=== PATIENT | male | born 1975 | race African-American/Black ===

== ENCOUNTER 2018-11-16 08:14 | Emergency (ER) | payer OTHER ==
[~2018-11-16] VITALS: Ht 170.2 cm; Wt 70.8 kg
[~2018-11-16 08:14] MED LIST: COGENTIN1 MG ORAL; IBUPROFEN600 MG ORAL; NAPROSYN500 M1 ORAL; ZYPREXA10 MG ORAL
[2018-11-16 08:27] VITALS: BP 140/94
--- NOTE | 2018-11-16 08:28 | NUR ---
ED Nurse Note: pt walked in to ED due to rashes on both forearm and hands for 2 days. per pt, noticed it after cutting trees. c/o itchness. pt also c/o on and off burning epigastric pain for last 2 months. AAO x4. respirations even and non-labored noted. will wait for the further order.
[2018-11-16] MEDS ORDERED: ANTI-ITCH56 GM TP (08:59)
[2018-11-16] MEDS ORDERED: CEPHALEXIN500 MG ORAL (08:59)
[2018-11-16 09:09] VITALS: BP 140/94
--- NOTE | 2018-11-16 09:10 | NUR ---
ER DISCHARGE NOTE: Patient is cleared to be discharged per ERMD, pt is aox4, on room air, with stable vital signs. pt was given dc and prescription instructions, pt was able to verbalize understanding, pt id band removed. pt is able to ambulate with steady gait. pt took all belongings.
--- NOTE | 2018-11-16 09:43 | Emergency Room Report ---
History of Present Illness General Chief Complaint: Skin Rash/Abscess Source: Patient Present Illness HPI 43-year-old male presents ED for evaluation. Patient states there is a rash on his arms. Started after he cut down a tree a few days ago and some substance fell from the tree onto his arms. States that it is very itchy and burning 5 out of 10 pain. Nonradiating. No other aggravating or relieving factors. Denies any known food or drug allergies. Denies any tongue swelling or throat swelling. Denies fevers or chills. No other aggravating or relieving factors. Denies any other associated symptoms Allergies: Coded Allergies: No Known Allergies (Unverified , 11/09/13) Patient History Past Medical History: none Past Surgical History: none Pertinent Family History: none Social History: Denies: smoking, alcohol use, drug use Immunizations: UTD Reviewed Nursing Documentation: PMH: Agreed; PSxH: Agreed Nursing Documentation-PMH Past Medical History: No History, Except For Hx Cardiac Problems: No Review of Systems All Other Systems: negative except mentioned in HPI Physical Exam Vital Signs Date Time Temp Pulse Resp B/P (MAP) Pulse Ox O2 Delivery O2 Flow Rate FiO2 11/16/18 08:19 97.5 71 20 140/94 (109) 96 Room Air Sp02 EP Interpretation: reviewed, normal General Appearance: no apparent distress, alert, GCS 15, non-toxic Head: normocephalic Eyes: bilateral eye normal inspection, bilateral eye PERRL ENT: normal ENT inspection Neck: normal inspection Respiratory: normal inspection Cardiovascular #1: normal inspection Gastrointestinal: normal inspection Rectal: deferred Genitourinary: no CVA tenderness Musculoskeletal: normal inspection Neurologic: alert, oriented x3, responsive, motor strength/tone normal, sensory intact, speech normal Psychiatric: judgement/insight normal, memory normal, mood/affect normal, no suicidal/homicidal ideation Skin: rash - papular erythematous rash in clusters on both arms. nonerythematous base Lymphatic: normal inspection Medical Decision Making Diagnostic Impression: Primary Impression: Rash ER Course Hospital Course 43-year-old male presents to ED with rash to arms Differential diagnoses include: Cellulitis, dermatitis, insect bite, abscess Clinical course Patient placed on stretcher. After initial history, physical exam reveals a male in no acute distress. On exam there is a fine papular rash in clusters on both arms. None erythematous base. Discussed findings with patient. Given organic substance made contact likely a contact dermatitis. Will discharge with hydrocortisone cream and antibiotics. Recommend close follow-up with dermatology. States he will follow-up with his PMD to get a referral Diagnosis -rash stable and discharged to home with prescription for keflex, hydrocortisone. Instructed to followup with PMD. Instructed return to ED if symptoms recur or worsen Last Vital Signs Date Time Temp Pulse Resp B/P (MAP) Pulse Ox O2 Delivery O2 Flow Rate FiO2 11/16/18 09:09 97.5 71 20 140/94 96 Room Air Status: improved Disposition: HOME, SELF-CARE Condition: Stable Scripts Hydrocortisone 2% Cream (ANTI-ITCH 2% CREAM) Y Cr 56 GM TP BID for 7 Days, #56 GM Prov: Vadim Tomlinson MD 11/16/18 Cephalexin* (KEFLEX*) 500 Mg Capsule 500 MG ORAL EVERY 6 HOURS for 7 Days, CAP Prov: Vadim Tomlinson MD 11/16/18 Patient Instructions: Contact Dermatitis, [id number] Vadim Tomlinson MD Nov 16, 2018 09:43
== END 2018-11-16 09:11 | disposition home or self-care (01) ==
LOC: EMR 08:26
DX: R21 Rash and other nonspecific skin eruption (principal)
CPT/HCPCS: 99282

== ENCOUNTER 2019-03-23 18:44 | Emergency (ER) | payer OTHER ==
[~2019-03-23] VITALS: Ht 167.6 cm; Wt 74.8 kg
[~2019-03-23 18:44] MED LIST changes: +ANTI-ITCH56 GM TP; +CEPHALEXIN500 MG ORAL
--- NOTE | 2019-03-23 19:11 | NUR ---
ED Nurse Note: PT FROM HOME WALKED IN DUE TO SORE THROAT AND DRY COUGHING X 3 DAYS. DENIES FEVER OR CHILLS. AAO X4 AND AMBULATORY AND SPEAKS IN FULL SENTENCES.
[2019-03-23] MEDS ORDERED: AMOXICILLIN500 MG ORAL (19:58)
--- NOTE | 2019-03-23 19:58 | Emergency Room Report ---
History of Present Illness General Chief Complaint: Sore Throat Present Illness HPI 44-year-old male with history of schizophrenia reporting that he currently is compliant with his medication, here complaining of 2 days of a 10 out of 10 sore throat. Denies fever chills, cough and congestion. Has not taken medication for symptom relief. Also complains of several weeks of discoloration noted on his tongue however denies any pain or pruritus to the affected area. Has not taken medication for symptom relief. Denies abdominal pain, nausea vomiting, chest pain, shortness of breath, palpitation, no other associated symptoms. Is up-to-date with his immunization. Allergies: Coded Allergies: No Known Allergies (Unverified , 11/09/13) Patient History Past Medical History: see triage record Past Surgical History: unable to obtain Pertinent Family History: none Immunizations: UTD Reviewed Nursing Documentation: PMH: Agreed; PSxH: Agreed Nursing Documentation-PMH Hx Cardiac Problems: No History Of Psychiatric Problem: Yes - Schizophrenia Review of Systems All Other Systems: negative except mentioned in HPI Physical Exam Vital Signs Date Time Temp Pulse Resp B/P (MAP) Pulse Ox O2 Delivery O2 Flow Rate FiO2 03/23/19 19:04 98.6 98 18 124/84 (97) 95 Room Air Sp02 EP Interpretation: reviewed, normal General Appearance: no apparent distress, alert, GCS 15, non-toxic Head: normocephalic, atraumatic Eyes: bilateral eye normal inspection, bilateral eye PERRL ENT: hearing grossly normal, no angioedema, normal voice, TMs + canals normal, tonsillar swelling, tonsillar exudate, other - Yellow discoloration noted on anterior side of tongue Neck: full range of motion, supple, no carotid bruits, supple/symm/no masses Respiratory: chest non-tender, lungs clear, normal breath sounds, no rhonchi, no wheezing, speaking full sentences Cardiovascular #1: regular rate, rhythm, no edema, no murmur, normal capillary refill Gastrointestinal: normal bowel sounds, non tender, soft, non-distended, no guarding, no rebound Rectal: deferred Genitourinary: no CVA tenderness Musculoskeletal: back normal, gait/station normal, normal range of motion, non- tender Neurologic: alert, oriented x3, responsive, motor strength/tone normal, sensory intact, speech normal Psychiatric: judgement/insight normal, memory normal, mood/affect normal, no suicidal/homicidal ideation Skin: no rash Lymphatic: no adenopathy Medical Decision Making PA Attestation Diagnosis and treatment plans were reviewed and discussed with my supervising physician Dr. Kelley Diagnostic Impression: Primary Impression: Strep pharyngitis Additional Impression: Tongue lesion ER Course 44-year-old male with history of schizophrenia reporting that he currently is compliant with his medication, here complaining of 2 days of a 10 out of 10 sore throat. Denies fever chills, cough and congestion. Has not taken medication for symptom relief. Also complains of several weeks of discoloration noted on his tongue however denies any pain or pruritus to the affected area. Has not taken medication for symptom relief. Denies abdominal pain, nausea vomiting, chest pain, shortness of breath, palpitation, no other associated symptoms. Is up-to-date with his immunization. Ddx considered but are not limited to: strep pharyngitis, URI, tonsillitis, peritonsillar abscess, influneza Vital signs: are WNL, pt. is afebrile H&PE are most consistent with: Strep pharyngitis, tongue lesion ORDERS: Amoxicillin, ED INTERVENTIONS: Amoxicillin DISCHARGE: At this time pt. is stable for d/c to home. Will provide printed patient care instructions, and any necessary prescriptions. Care plan and follow up instructions have been discussed with the patient prior to discharge. Follow-up with primary care provider to refer to ENT for biopsy of tongue lesion. return to ER if worsening symptoms Last Vital Signs Date Time Temp Pulse Resp B/P (MAP) Pulse Ox O2 Delivery O2 Flow Rate FiO2 03/23/19 19:04 98.6 98 18 124/84 (97) 95 Room Air Disposition: HOME, SELF-CARE Condition: Stable Scripts Amoxicillin* (AMOXIL*) 500 Mg Capsule 500 MG ORAL EVERY 12 HOURS for 10 Days, #20 CAP Prov: Tara Dillon 03/23/19 Patient Instructions: Strep Throat Additional Instructions: Take medication as directed, follow-up with your primary care provider for referral to ear nose throat doctor for sampling of the lesion noted on your tongue. If worsening symptoms return to the emergency room. Tara Dillon Mar 23, 2019 19:58
--- NOTE | 2019-03-23 20:15 | NUR ---
Discharged home with ACI, arm band removed, mesdicated as ordered. Ambulating with steady gait. Has minimal pain.
[2019-03-23 20:18] VITALS: BP 124/84
== END 2019-03-23 21:08 | disposition home or self-care (01) ==
LOC: EMR 21:08
DX: J02.0 Streptococcal pharyngitis (principal); K14.9 Disease of tongue, unspecified; F20.9 Schizophrenia, unspecified
CPT/HCPCS: 99282

== ENCOUNTER 2019-08-15 09:58 | Emergency (ER) | payer OTHER ==
[~2019-08-15] VITALS: Ht 167.6 cm; Wt 74.8 kg
[2019-08-15 09:47] VITALS: BP 149/103
[~2019-08-15 09:58] MED LIST changes: +AMOXICILLIN500 MG ORAL
--- NOTE | 2019-08-15 09:58 | NUR ---
ED Nurse Note: pt. walked in to er from home. per pt. he has sorethroat x 1 week now with rash on his face that he noted x 3 days ago
[2019-08-15] MEDS ORDERED: AMOXICILLIN500 MG ORAL (10:03)
[2019-08-15 10:06] VITALS: BP 138/75
--- NOTE | 2019-08-15 10:10 | Emergency Room Report ---
History of Present Illness General Chief Complaint: Sore Throat Source: Patient Present Illness HPI Disclaimer: Please note that this report is being documented using [employer] technology. This can lead to erroneous entry secondary to incorrect interpretation by the dictating instrument. HPI: 44-year-old male presents for evaluation of sore throat and facial rash. Patient states over the past week he has had worsening sore throat, painful swallowing but denies any stridor, throat closing sensation, inability to swallow or tolerate his secretions. He reports mild nasal congestion but denies cough, fever, chills, vomiting, diarrhea. Yesterday he noted redness spreading around the bridge of his nose and onto his cheeks. Denies pain, itching, skin breakdown, discharge. States he has been treated for strep throat in the past. Denies sick contacts or recent travel. Has been isolating at home in accordance with local and national guidelines regarding COVID-19 infection. PMH: Schizophrenia PSH: Reviewed Allergies: Denies Social Hx: Current smoker though cutting back and planning to quit Allergies: Coded Allergies: No Known Allergies (Unverified , 11/09/13) COVID-19 Screening Contact w/high risk pt: No Recent Travel to affected area: No Experienced COVID-19 symptoms?: No Nursing Documentation-PMH Hx Cardiac Problems: No Review of Systems All Other Systems: negative except mentioned in HPI Physical Exam Vital Signs Date Time Temp Pulse Resp B/P (MAP) Pulse Ox O2 Delivery O2 Flow Rate FiO2 08/15/19 09:47 98.8 94 18 149/103 (118) 99 Room Air General: Awake and alert, no acute distress HEENT: NC/AT. EOMI. PERRLA. Anicteric sclera. Uvula is midline. There is mild pharyngeal and tonsillar erythema but no edema, no exudate. Airways patent , no stridor, tolerating secretions well. Neck: Supple, trachea midline, no submandibular or cervical lymphadenopathy Chest Wall: No tenderness, no deformity Cardiovascular: RRR. S1 and S2 normal. No murmur appreciated Resp: Normal work of breathing. No cough, wheezing or crackles appreciated Skin: Intact. No abrasions, laceration over the exposed skin. There is mild erythema around the nasal bridge extending over the cheeks bilaterally without edema, ulceration, vesicles, breakdown. Nikolsky negative. MSK: Normal tone and bulk. Moving all extremities. No obvious deformity. Neuro: Awake and alert. Mentating appropriately. Medical Decision Making Diagnostic Impression: Primary Impression: Erysipelas Additional Impressions: Suspected 2019 novel coronavirus infection Upper respiratory infection ER Course This a 44-year-old male presenting for evaluation of 1 week sore throat now with 1 day of skin rash over the face. Differential includes was not limited to viral syndrome, URI, pharyngitis, tonsillitis, influenza, COVID-19, cellulitis, erysipelas, abscess, lupus, drug reaction. Patient's presentation is most consistent with a viral syndrome regarding a sore throat though he has a history of streptococcal pharyngitis. Centor score is 0. Given the patient's upper respiratory symptoms and physical exam findings, the patient has been screened and is suspected to have COVID-19 however we are unable to perform testing at this time due to limited supply of testing kits. Regarding the patient's rash, it is most consistent with an erysipelas or mild cellulitis. No evidence of deep space or purulent infection. Patient does not require emergent labs or imaging at this time. He will be treated with amoxicillin for 1 week to cover streptococcal infections and remain in isolation. Information regarding isolation procedures including the patient's discharge paperwork. He will be discharged to follow-up with clinic/PMD and return with any new or worsening symptoms. He understands and agrees with the treatment plan will be discharged. Last Vital Signs Date Time Temp Pulse Resp B/P (MAP) Pulse Ox O2 Delivery O2 Flow Rate FiO2 08/15/19 09:47 98.8 94 18 149/103 99 Room Air Disposition: HOME, SELF-CARE Condition: Stable Scripts Amoxicillin* (AMOXIL*) 500 Mg Capsule 500 MG ORAL THREE TIMES A DAY for 7 Days, #21 CAP Prov: Jonathon Alvarez MD 08/15/19 Referrals: Dany Reyes [facility] Patient Instructions: Erysipelas, Sore Throat Additional Instructions: Please follow-up with your primary care doctor in the next 1 to 3 days to discuss this emergency department visit and for reevaluation. Take the medications as prescribed. If you have any new or worsening symptoms please return to the emergency department for reevaluation. Call your primary physician as soon as possible to discuss emergency department visit. You may require reevaluation or further testing per your doctor's recommendations. Limit your contact with others as much as possible over the next 14 days. Stay minimum of 6 feet away from others, do not attend large gatherings and clean and disinfect all heavily used surfaces. Follow CDC guidelines for isolation and infection prevention. If you experience any new or worsening symptoms discussed with your doctor or return to the emergency department for reevaluation. Jonathon Alvarez MD Aug 15, 2019 10:10
== END 2019-08-15 10:10 | disposition home or self-care (01) ==
LOC: EMR 10:06
DX: A46 Erysipelas (principal); J06.9 Acute upper respiratory infection, unspecified; F20.9 Schizophrenia, unspecified; F17.200 Nicotine dependence, unspecified, uncomplicated; Z03.818 Encounter for observation for suspected exposure to other biological agents ruled out
CPT/HCPCS: 99282

== ENCOUNTER 2019-10-14 13:58 | Observation (INO) | payer OTHER ==
[~2019-10-14] VITALS: Ht 175.3 cm; Wt 72.6 kg
[2019-10-14 14:22] VITALS: BP 112/88
--- NOTE | 2019-10-14 14:25 | NUR ---
ED Nurse Note: Patient walked in to ER c/o dizziness x 2 weeks ; reports no N/V or vision changes; feels like room spinning. Patient AAO x4, VSS at this time.
[2019-10-14] MEDS ORDERED: Meclizine 25mg tab ORAL PRN (14:30)
--- NOTE | 2019-10-14 14:47 | NUR ---
ED Nurse Note: Blood sent to lab.
[2019-10-14 15:07] LABS: BASOPHILS % (AUTO) 1.7 % (0.0-2.0); EOSINOPHILS % (AUTO) 3.8 % (0.0-3.0); HEMOGLOBIN 14.1 G/DL (14.2-18.0); LYMPHOCYTES % (AUTO) 33.8 % (20.0-45.0); MEAN CORPUSCULAR VOLUME 95 FL (80-99); MONOCYTES % (AUTO) 6.1 % (1.0-10.0); NEUTROPHILS % (AUTO) 54.6 % (45.0-75.0); PLATELET COUNT 267 K/UL (150-450); RED BLOOD COUNT 4.52 M/UL (4.70-6.10); RED CELL DISTRIBUTION WIDTH 11.6 % (11.6-14.8)
[2019-10-14 15:21] LABS: ANION GAP 11 mmol/L (5-15); BLOOD UREA NITROGEN 8 mg/dL (7-18); CARBON DIOXIDE 25 MMOL/L (21-32); CHLORIDE 102 MMOL/L (98-107); CREATININE 1.4 MG/DL (0.55-1.30); POTASSIUM 3.4 MMOL/L (3.5-5.1); SODIUM 138 MMOL/L (136-145)
--- NOTE | 2019-10-14 15:23 | Diagnostic Imaging Report ---
Indications: Dizziness and vertigo Technique: Spiral acquisitions obtained through the brain. Angled axial and coronal 5 x 5 mm slices were reconstructed. Total dose length product 992 mGycm. CTDI vol(s) 53 mGy. Dose reduction achieved using automated exposure control Comparison: None. Findings: The calvarium is intact. There is bilateral ethmoid sinus disease. The mastoids are clear. No acute intracranial hemorrhage or edema. No mass effect nor midline shift. Normal size ventricles and extra-axial CSF spaces. Normal macario-white differentiation. Visualized orbits are unremarkable. Impression: Negative for acute intracranial bleed or mass effect Incidental finding of sinus disease The CT scanner at [facility] is accredited by the [employer] and the scans are performed using protocols designed to limit radiation exposure to as low as reasonably achievable to attain images of sufficient resolution adequate for diagnostic evaluation.
[2019-10-14 15:32] LABS: ALANINE AMINOTRANSFERASE 60 U/L (12-78); ALBUMIN 3.7 G/DL (3.4-5.0); ALBUMIN/GLOBULIN RATIO 1.2 (1.0-2.7); ALKALINE PHOSPHATASE 39 U/L (46-116); ASPARTATE AMINO TRANSFERASE 32 U/L (15-37); BILIRUBIN,TOTAL 0.5 MG/DL (0.2-1.0)
--- NOTE | 2019-10-14 15:58 | Emergency Room Report ---
History of Present Illness General Chief Complaint: Dizziness Source: Patient Present Illness HPI 44-year-old male with history of schizophrenia who has been taking Zyprexa for many years at the same dose here complaining of 2 weeks of generalized weakness as well as dizziness. Reports in the past few days dizziness has been getting worse upon sitting and standing. Reports that he is very low energy. Also reports that his jaw has been feeling stiff however denies any chest pain chest pain radiation. Denies shortness of breath, abdominal pain, nausea vomiting diarrhea. Has not yet been seen by primary doctor in this regard. Has been compliant with taking Zyprexa for many years. Reports that he smokes cigars however denies smoking recently and reports that he occasionally smokes marijuana. Denies vertigo, hearing loss, head injury, syncope at this time.. Denies nausea vomiting Allergies: Coded Allergies: No Known Allergies (Unverified , 11/09/13) COVID-19 Screening Contact w/high risk pt: No Recent Travel to affected area: No Experienced COVID-19 symptoms?: No COVID-19 Testing performed UX INFORMATION ARCHITECT: No Patient History Past Medical History: see triage record Past Surgical History: none Pertinent Family History: none Social History: Reports: smoking Immunizations: UTD Reviewed Nursing Documentation: PMH: Agreed; PSxH: Agreed Nursing Documentation-PMH Past Medical History: No History, Except For Hx Cardiac Problems: No History Of Psychiatric Problem: Yes - Schizophrenia Review of Systems All Other Systems: negative except mentioned in HPI Physical Exam Vital Signs Date Time Temp Pulse Resp B/P (MAP) Pulse Ox O2 Delivery O2 Flow Rate FiO2 10/14/19 14:14 97.9 93 14 112/88 (96) 96 Room Air Sp02 EP Interpretation: reviewed, normal General Appearance: no apparent distress, alert, GCS 15, non-toxic Head: normocephalic, atraumatic Eyes: bilateral eye normal inspection, bilateral eye PERRL ENT: hearing grossly normal, normal pharynx, no angioedema, normal voice Neck: full range of motion, supple/symm/no masses Respiratory: chest non-tender, lungs clear, normal breath sounds, speaking full sentences Cardiovascular #1: regular rate, rhythm, no edema Gastrointestinal: non tender, soft, no mass Rectal: deferred Genitourinary: no CVA tenderness Musculoskeletal: back normal, no calf tenderness Neurologic: alert, motor strength/tone normal, oriented x3, sensory intact, responsive, speech normal Psychiatric: judgement/insight normal, memory normal, mood/affect normal, no suicidal/homicidal ideation Skin: no rash Lymphatic: no adenopathy Medical Decision Making PA Attestation All my diagnosis and treatment plans were reviewed ad discussed with my supervising physician Dr. Perez Diagnostic Impression: Primary Impression: Near syncope Additional Impressions: Dizziness Abnormal EKG ER Course 44-year-old male with history of schizophrenia who has been taking Zyprexa for many years at the same dose here complaining of 2 weeks of generalized weakness as well as dizziness. Reports in the past few days dizziness has been getting worse upon sitting and standing. Reports that he is very low energy. Also reports that his jaw has been feeling stiff however denies any chest pain chest pain radiation. Denies shortness of breath, abdominal pain, nausea vomiting diarrhea. Has not yet been seen by primary doctor in this regard. Has been compliant with taking Zyprexa for many years. Reports that he smokes cigars however denies smoking recently and reports that he occasionally smokes marijuana. Denies vertigo, hearing loss, head injury, syncope at this time.. Denies nausea vomiting Ddx considered but are not limited to: Dizziness due to alcohol intoxication, dizziness unspecified, dizziness due to head trauma, dizziness secondary to cardiac reasons Vital signs: are WNL, pt. is afebrile H&PE are most consistent with: Dizziness near syncope, abnormal EKG ORDERS: CBC, CMP, UA, troponin, BMP, head CT, chest x-ray, EKG, bedside echo ER intervention: NS bolus, meclizine Patient was admitted with diagnosis of near syncope, dizziness, abnormal EKG to Dr. Cooper under supervision of : Chris pt stable at time of admission EKG Diagnostic Results Rate: other - abnormal peaked QRS in V1 ST Segments: other Chest X-Ray Diagnostic Results Chest X-Ray Diagnostic Results : Chest X-Ray Ordered: Yes # of Views/Limited/Complete: 1 View Indication: Other EP Interpretation: Yes PA Xray: Interpretation reviewed, by supervising MD, and agrees with findings. Interpretation: no consolidation, no effusion, no pneumothorax Impression: No acute disease Electronically Signed by: Tara Rolle PA-C CT/MRI/US Diagnostic Results CT/MRI/US Diagnostic Results : Imaging Test Ordered: Head CT no contrast Impression No intracranial bleed, no skull fracture, within normal limits Last Vital Signs Date Time Temp Pulse Resp B/P (MAP) Pulse Ox O2 Delivery O2 Flow Rate FiO2 10/14/19 14:22 93 14 Room Air 10/14/19 14:22 97.9 112/88 96 Disposition: ADMITTED INPATIENT Condition: Stable Tara Dillon Oct 14, 2019 15:58
[2019-10-14 16:02] LABS: APPEARANCE,URINE CLEAR; BILIRUBIN, URINE NEGATIVE (NEGATIVE); COLOR,URINE PALE YELLOW; GLUCOSE, URINE (UA) NEGATIVE (NEGATIVE); KETONES,URINE NEGATIVE (NEGATIVE); LEUKOCYTE ESTERASE ,URINE NEGATIVE (NEGATIVE); NITRITE,URINE NEGATIVE (NEGATIVE); PH,URINE 5 (4.5-8.0); PROTEIN,URINE NEGATIVE (NEGATIVE); UROBILINOGEN,URINE NORMAL MG/DL (0.0-1.0)
--- NOTE | 2019-10-14 16:22 | Diagnostic Imaging Report ---
Procedure: XRAY Chest 1v Reason for study: Chest pain. Comparison films: None. FINDINGS: A single one view chest is obtained. Vascularity is normal. The lung choe are clear bilaterally. Cardiac and mediastinal silhouette are within normal limits. CP angles are sharp. The bony thorax appear unremarkable. IMPRESSION: NO ACUTE CARDIOPULMONARY DISEASE.
[2019-10-14 17:39] VITALS: BP 119/82
[2019-10-14] MEDS ORDERED: Aspirin Baby 81mg ORAL ONE (19:00)
--- NOTE | 2019-10-14 19:00 | NUR ---
ED Nurse Note: Recieved report from JAYLIN Almodovar. Patient resting in bed, no acute distress noted. Patient ambulated to restroom and placed back on cardiac monitor technician.
[2019-10-14 19:23] VITALS: BP 131/98
[2019-10-14 20:00] VITALS: BP 121/90
--- NOTE | 2019-10-14 20:01 | NUR ---
ED Nurse Note: Report given to JAYLIN Peralta in telemetry.
--- NOTE | 2019-10-14 20:05 | NUR ---
TRANSFER TO FLOOR: Patient transferred to telemetry as ordered, per ERMD. Report given to JAYLIN Peralta. Patient transported via gurney on ACLS protocol with monitoring coordinator in stable condition accompanied by 2 RN.
--- NOTE | 2019-10-14 20:10 | NUR ---
NURSE NOTES: Received report from JAYLIN Cross. Patient was transferred to Telemetry unit from ER via gurney without incident. No signs of acute distress noted; denies pain at this time. AOx4; able to make needs known. Ambulates with steady gait, but with some staff supervision as well. Checked IV site; patent and flushed. No erythema, bleeding, or infiltration noted. Belongings list checked with patient and transferring RN. Skin assessment performed; skin is intact. No wounds noted. Bed at lowest position, brakes on, siderails up x2. Call light within reach. Will continue to monitor.
--- NOTE | 2019-10-14 21:12 | NUR ---
NURSE NOTES: Received admission orders from Dr. Cooper including nicotine patch. Noted and carried out.
[2019-10-14] MEDS ORDERED: D5 1/2NS 1,000 ML IV SCH (23:30)
[2019-10-15] VITALS: BP 125/83
[2019-10-15 04:00] VITALS: BP 127/80
[2019-10-15 04:32] LABS: BASOPHILS % (AUTO) 1.6 % (0.0-2.0); EOSINOPHILS % (AUTO) 4.7 % (0.0-3.0); HEMATOCRIT 38.7 % (42.0-52.0); HEMOGLOBIN 14.1 G/DL (14.2-18.0); LYMPHOCYTES % (AUTO) 47.8 % (20.0-45.0); MEAN CORPUSCULAR VOLUME 88 FL (80-99); MONOCYTES % (AUTO) 7.5 % (1.0-10.0); NEUTROPHILS % (AUTO) 38.4 % (45.0-75.0); PLATELET COUNT 254 K/UL (150-450); RED BLOOD COUNT 4.42 M/UL (4.70-6.10); RED CELL DISTRIBUTION WIDTH 10.7 % (11.6-14.8); WHITE BLOOD COUNT 5.8 K/UL (4.8-10.8)
[2019-10-15 04:44] LABS: ANION GAP 8 mmol/L (5-15); BLOOD UREA NITROGEN 10 mg/dL (7-18); CALCIUM 8.2 MG/DL (8.5-10.1); CARBON DIOXIDE 27 MMOL/L (21-32); CHLORIDE 105 MMOL/L (98-107); CREATININE 1.3 MG/DL (0.55-1.30); POTASSIUM 3.7 MMOL/L (3.5-5.1); SODIUM 140 MMOL/L (136-145)
--- NOTE | 2019-10-15 07:21 | NUR ---
HAND-OFF: Report given to JAYLIN Pathak. Patient is resting in bed comfortably. In stable condition.
[2019-10-15 08:00] VITALS: BP 127/91
--- NOTE | 2019-10-15 08:00 | NUR ---
NURSE NOTES: Report received from Kathryn MOSQUEDA. Patient is observed in bed, awake, alert, oriented, and able to make needs known. Patient denies pain at this time. Respiratory even and unlabored. Patient does complain of mild dizziness when ambulating, encouraged patient to use call light before ambulating to the restroom to prevent falls, pt verbalized understanding. IV site is asymptomatic, patent, and intact. IVF is running at a prescribed rate. Bed is in lowest position with side rails up x2 and brakes are engaged. Bed alarm is on. Belongings, call light, and urinal within reach. Will continue to monitor.
--- NOTE | 2019-10-15 08:33 | NUR ---
TICKET COUNTER NOTE SW received notification to screen suicide, abuse and neglect. Pt presents as A&O4x and cooperative. [place] w/ [place] friends at [address] [place] [id number]. RUDS positive for THC. PT denies current substance abuse. Pt is single and has no family in contact. Emergency contact provided: Michael (girlfriend) [phone] Pt reports hx of Schizophrenia and takes Zyprexa. Pt receives outpatient [facility] at [facility]. Pt sees both psychiatrist and therapist. Pt denies hx of SI/HI and current SI/HI. PT is ambulatory w/o DMEs and independent w/ ADLs. Pt does not address any social media marketer concerns/needs. This SW does not believe pt is at risk of suicide, abuse or neglect.
--- NOTE | 2019-10-15 09:35 | NUR ---
*-* NO INSURANCE INFORMATION TO WHOM TO FAX REVIEWS OR CLINICALS *-*
--- NOTE | 2019-10-15 09:37 | NUR ---
*-* INSURANCE *-* ALL AVAILABLE CLINICALS HAVE BEEN FAXED TO: [facility] F: [phone] & [facility] F: [phone] Addendum: 10/15/19 at 1434 by MEL MONGE CM [facility] ref# [id number] p: [phone] f: [phone]
--- NOTE | 2019-10-15 10:39 | NUR ---
CASE MANAGEMENT:INITIAL REVIEW 44 YR OLD MALE FROM HOME CC;DIZZINESS PMHx;SCHIZOPHRENIA SI;DIZZINESS. NEAR SYNCOPE. 97.9 93 11 131/98 96% ON RA K+ 3.1 CR 1.4 BG 133 ALK PHOS 39 UA ~ NEGATIVE TOX+ THC HEAD CT ~ Negative for acute intracranial bleed or mass effect CXR ~ NO ACUTE CARDIOPULMONARY DISEASE. IS;IVF NS MECLIZINE PO ADMITTED TO TELE @ 2001 ON 10/14/19 TELE STATUS DCP;PATIENT IS FROM HOME
--- NOTE | 2019-10-15 11:58 | NUR ---
NURSE NOTES: Patient is observed in bed, awake, alert, oriented, and able to make needs known. Denies pain at this time. VSS. SR on monitor.
[2019-10-15 12:09] VITALS: BP 126/89
--- NOTE | 2019-10-15 13:44 | Cardiac Electrophysiology PN ---
Subjective Subjective [id number] Objective Last 24 Hour Vital Signs Date Time Temp Pulse Resp B/P (MAP) Pulse Ox O2 Delivery O2 Flow Rate FiO2 10/15/19 12:09 97.9 72 18 126/89 (101) 98 10/15/19 12:00 59 10/15/19 09:02 Room Air 10/15/19 08:00 97.2 59 18 127/91 (103) 98 10/15/19 07:45 68 10/15/19 04:00 97.9 57 18 127/80 (96) 98 10/15/19 04:00 56 10/15/19 02:26 Room Air 10/15/19 00:00 68 10/15/19 00:00 97.4 61 18 125/83 (97) 98 10/14/19 21:00 60 10/14/19 20:05 97.9 83 14 128/79 99 Room Air 10/14/19 20:00 97.6 59 18 121/90 (100) 99 10/14/19 19:23 65 11 131/98 98 Room Air 10/14/19 17:39 97.9 80 15 119/82 98 Room Air 10/14/19 14:22 93 14 Room Air 10/14/19 14:22 97.9 14 112/88 96 Room Air 10/14/19 14:14 97.9 93 14 112/88 (96) 96 Room Air Intake and Output 10/14/19 10/15/19 19:00 07:00 Intake Total 1000 ml 630 ml Balance 1000 ml 630 ml Intake Oral 300 ml IV Total 1000 ml 330 ml # Voids 1 2 Laboratory Tests Test 10/14/19 14:40 10/14/19 15:58 10/15/19 04:10 White Blood Count 6.0 K/UL (4.8-10.8) 5.8 K/UL (4.8-10.8) Red Blood Count 4.52 M/UL (4.70-6.10) L 4.42 M/UL (4.70-6.10) L Hemoglobin 14.1 G/DL (14.2-18.0) L 14.1 G/DL (14.2-18.0) L Hematocrit 43.0 % (42.0-52.0) 38.7 % (42.0-52.0) L Mean Corpuscular Volume 95 FL (80-99) 88 FL (80-99) Mean Corpuscular Hemoglobin 31.3 PG (27.0-31.0) H 32.0 PG (27.0-31.0) H Mean Corpuscular Hemoglobin Concent 32.8 G/DL (32.0-36.0) 36.5 G/DL (32.0-36.0) H Red Cell Distribution Width 11.6 % (11.6-14.8) 10.7 % (11.6-14.8) L Platelet Count 267 K/UL (150-450) 254 K/UL (150-450) Mean Platelet Volume 7.6 FL (6.5-10.1) 6.3 FL (6.5-10.1) L Neutrophils (%) (Auto) 54.6 % (45.0-75.0) 38.4 % (45.0-75.0) L Lymphocytes (%) (Auto) 33.8 % (20.0-45.0) 47.8 % (20.0-45.0) H Monocytes (%) (Auto) 6.1 % (1.0-10.0) 7.5 % (1.0-10.0) Eosinophils (%) (Auto) 3.8 % (0.0-3.0) H 4.7 % (0.0-3.0) H Basophils (%) (Auto) 1.7 % (0.0-2.0) 1.6 % (0.0-2.0) Sodium Level 138 MMOL/L (136-145) 140 MMOL/L (136-145) Potassium Level 3.4 MMOL/L (3.5-5.1) L 3.7 MMOL/L (3.5-5.1) Chloride Level 102 MMOL/L (98-107) 105 MMOL/L (98-107) Carbon Dioxide Level 25 MMOL/L (21-32) 27 MMOL/L (21-32) Anion Gap 11 mmol/L (5-15) 8 mmol/L (5-15) Blood Urea Nitrogen 8 mg/dL (7-18) 10 mg/dL (7-18) Creatinine 1.4 MG/DL (0.55-1.30) H 1.3 MG/DL (0.55-1.30) Estimat Glomerular Filtration Rate > 60 mL/min (>60) > 60 mL/min (>60) Glucose Level 133 MG/DL (74-106) H 105 MG/DL (74-106) Calcium Level 9.0 MG/DL (8.5-10.1) 8.2 MG/DL (8.5-10.1) L Total Bilirubin 0.5 MG/DL (0.2-1.0) Aspartate Amino Transf (AST/SGOT) 32 U/L (15-37) Alanine Aminotransferase (ALT/SGPT) 60 U/L (12-78) Alkaline Phosphatase 39 U/L (46-116) L Troponin I 0.000 ng/mL (0.000-0.056) 0.017 ng/mL (0.000-0.056) Pro-B-Type Natriuretic Peptide 67 pg/mL (0-125) Total Protein 6.8 G/DL (6.4-8.2) Albumin 3.7 G/DL (3.4-5.0) Globulin 3.1 g/dL Albumin/Globulin Ratio 1.2 (1.0-2.7) Urine Color Pale yellow Urine Appearance Clear Urine pH 5 (4.5-8.0) Urine Specific Buna 1.005 (1.005-1.035) Urine Protein Negative (NEGATIVE) Urine Glucose (UA) Negative (NEGATIVE) Urine Ketones Negative (NEGATIVE) Urine Blood Negative (NEGATIVE) Urine Nitrite Negative (NEGATIVE) Urine Bilirubin Negative (NEGATIVE) Urine Urobilinogen Normal MG/DL (0.0-1.0) Urine Leukocyte Esterase Negative (NEGATIVE) Urine Opiates Screen Negative (NEGATIVE) Urine Barbiturates Screen Negative (NEGATIVE) Phencyclidine (PCP) Screen Negative (NEGATIVE) Urine Amphetamines Screen Negative (NEGATIVE) Urine Benzodiazepines Screen Negative (NEGATIVE) Urine Cocaine Screen Negative (NEGATIVE) Urine Marijuana (THC) Screen Positive (NEGATIVE) Sagar Vail MD Oct 15, 2019 13:44
--- NOTE | 2019-10-15 13:55 | NUR ---
P.T Note: P.T evaluation completed. Pt is alert, O x 4 , pleasant and cooperative. Pt has no c/o pain but slight dizziness 2/10. Pt currently is baseline independent in all areas of ADL/functional mobilities and gait/locomotion. Skilled P.T service is not warranted at this time. [place] P.T services. Thank you for this referral.
--- NOTE | 2019-10-15 20:30 | History and Physical Report ---
DATE OF ADMISSION: 10/14/2019 DATE AND TIME SEEN: On 10/15/2019 at 10 a.m. CONSULTANTS: 1. Sagar Ocasio MD. 2. Luciano Donald MD. 3. Lio Sanchez MD. CHIEF COMPLAINT: Weakness, near-syncope, schizophrenia. BRIEF HISTORY: This is a 44-year-old male, who lives at home and presented with the above-mentioned diagnoses, admitted to telemetry. Currently, calm in bed, no complaint, slight chest pain, no shortness of breath, and no nausea, vomiting, or diarrhea. PAST MEDICAL HISTORY: Schizophrenia. PAST SURGICAL HISTORY: Testicle surgery. ALLERGIES: Denies. MEDICATIONS: Include olanzapine, nicotine patch, aspirin, and meclizine. SOCIAL HISTORY: Positive smoking. Occasional alcohol. No intravenous drug abuse. FAMILY HISTORY: Noncontributory. PHYSICAL EXAMINATION: GENERAL: Calm in bed, oriented x3, in no acute distress. VITAL SIGNS: Temperature is 97, pulse 59, respirations 18, blood pressure 127/91. CARDIOVASCULAR: No murmur. LUNGS: Distant and clear. ABDOMEN: Bowel sounds positive. Nontender, nondistended. EXTREMITIES: No cyanosis, clubbing, or edema. EXTREMITIES: The patient moves all extremities, slightly weak. LABORATORY AND DIAGNOSTIC DATA: Labs at this time show hemoglobin 14, hematocrit 38, and otherwise normal. BMP, calcium 8.2. Troponin 0.017. Urinalysis is negative. Urine-tox positive for marijuana. ASSESSMENT: Weakness, near-syncope, schizophrenia, drug abuse. PLAN: Detox and dietary followup. Troponin q.8h. x3. EKG in the morning. Dr. Ocasio follow-up, and Psychiatry and Neurology as well. PT and dietary evaluation. CBC and BMP in the morning. Ashish Cooper D.O. DR: Jillian JOB#: [id number] CC:
[2019-10-15] MEDS ORDERED: OLANZapine 10mg tab ORAL SCH ×2 (21:00)
--- NOTE | 2019-10-15 23:30 | Consultation ---
DATE OF CONSULTATION: 10/15/2019 CARDIOLOGY CONSULTATION CONSULTING PHYSICIAN: Sagar Ocasio MD. REFERRING PHYSICIAN: Ashish Cooper DO. REASON FOR CONSULTATION: Dizziness, presyncope, and hypertension. HISTORY OF PRESENT ILLNESS: The patient is a 44-year-old gentleman with history of schizophrenia on Zyprexa for many years, presented to the emergency department for two weeks of generalized weakness and dizziness. These episodes have gotten worse upon sitting and standing. At some point, he felt like he may pass out, even though he did not. The patient denies any chest pain or shortness of breath. No nausea, vomiting, or diarrhea. The patient was admitted and Cardiology consultation was obtained for further evaluation and management. REVIEW OF SYSTEMS: Review of systems was negative other than what was mentioned in the history of present illness. PAST MEDICAL HISTORY: As mentioned above. FAMILY HISTORY: Noncontributory. SOCIAL HISTORY: He lives at home. Does not smoke or drink alcohol. PHYSICAL EXAMINATION: VITAL SIGNS: Blood pressure of 126/89, pulse is 72, respiratory rate 18, and he is afebrile. HEAD AND NECK: No JVD. LUNGS: Clear. CARDIOVASCULAR: Regular S1 and S2 with no gallop or murmur. ABDOMEN: Soft. EXTREMITIES: No pitting edema. LABORATORY DATA: Labs show white count 5.8, hemoglobin of 14, hematocrit of 38, and platelet count of 254. Sodium 140, potassium 3.7, BUN of 10, creatinine 1.3. Troponin negative x2. Urine toxicology is positive for marijuana. Urinalysis . ASSESSMENT AND PLAN: 1. Dizzy spells. Etiology not clear at this time. The patient was ruled out for myocardial infarction. EKG does not show any acute ischemic changes. We will get an echocardiogram to evaluate for ejection fraction and wall motion abnormality. 2. History of psychosis, currently on Zyprexa. 3. Smoker on NicoDerm patch. Thank you very much for allowing me to participate in the care of this patient. Please do not hesitate to contact me for any questions regarding my evaluation. Sincerely, Sagar Ocasio M.D. DR: Marquise JOB#: [id number] CC:
--- NOTE | 2019-10-16 16:21 | NUR ---
*-* INSURANCE *-* ALL AVAILABLE CLINICALS HAVE BEEN FAXED TO:( NO DISCHARGE SUMMARY IN THE SYSTEM) [facility] F: [phone] & [facility] ref# [id number] p: [phone] f: [phone] & [facility] F: [phone] Addendum: 10/15/19 at 1434 by MEL MONGE CM [facility] ref# [id number] p: [phone] f: [phone] Addendum: 10/16/19 at 1623 by MEL MONGE CM UNABLE TO SEND CLINICALS NO DISCHARGE SUMMARY IN THE SYSTEM
--- NOTE | 2019-10-17 11:48 | NUR ---
*-* NO DISCHARGE SUMMARY IN THE SYSTEM UNABLE TO SEND TO INS [employer]. *-*
--- NOTE | 2019-10-19 22:44 | Discharge Summary ---
Discharge Summary Discharge Summary _ DATE OF ADMISSION: 10/14/2019 DATE OF DISCHARGE: 10/15/2019 DISCHARGED BY: Dr. Ashish Cooper CONSULTANTS: Dr. Sagar Ocasio BRIEF HOSPITAL COURSE: Patient is a 44-year-old male, who lives at home, with history of Zyprexa and has been taking Zyprexa for many years complained of 2-week generalized weakness as well as dizziness. Patient reported feeling dizzy, worse upon sitting and standing. He reported feeling low energy. He reported stiffness in the jaw however he denied chest pain, shortness of breath, abdominal pain, nausea, vomiting or diarrhea. He had been compliant with taking Zyprexa for many years. He reported cigarette and occasional marijuana smoking. Upon evaluation at ED, vital signs were stable. Blood work did not show any leukocytosis. Hemoglobin and hematocrit were stable. Potassium was slightly low at 3.4. BUN 8 and creatinine 1.4. Troponin was negative. Urinalysis was negative. Urine toxicology screen was positive for marijuana. EKG showed abnormal peak QRS in V1. Chest x-ray did not show any cardiopulmonary disease. Head CT was negative for acute intracranial bleed or mass-effect. Patient was then admitted to telemetry under observation for evaluation of near syncope. He underwent cardiac evaluation. Cardiac enzymes were monitored and were negative x2. EKG did not show any acute ischemic changes. Telemetry readings were normal. Vital signs were stable. He was given physical therapy. He was eventually discharged home. FINAL DIAGNOSES: Dizzy spells/near syncope Schizophrenia on Zyprexa Smoker Drug abuse DISPOSITION: Patient was discharged home. DISCHARGE MEDICATIONS: Continue home meds. DISCHARGE INSTRUCTIONS: Follow-up in a week. I have been assigned to complete a discharge summary on this account, I was not involved with the patient's management.--ISABELLE Ashraf Jacqueline Robles NP Oct 19, 2019 22:44
--- NOTE | 2019-10-20 13:32 | NUR ---
*-* INSURANCE *-* ALL AVAILABLE CLINICALS HAVE BEEN FAXED TO:( NO DISCHARGE SUMMARY IN THE SYSTEM) [facility]: [phone] & [facility] ref# [id number] p: [phone] f: [phone] & [facility] F: [phone] & [facility] ref# [id number] p: [phone] f: [phone] Addendum: 10/20/19 at 1334 by MEL MONGE CM DISCHARGE SUMMARY HAS BEEN FAXED
== END 2019-10-15 14:53 | disposition home or self-care (01) ==
LOC: EMR 14:37 → 2E 18:09 → EDBEDREQ 18:43 → 2E 10-15 05:07
DX: R55 Syncope and collapse (principal); R42 Dizziness and giddiness; Z79.899 Other long term (current) drug therapy; F17.200 Nicotine dependence, unspecified, uncomplicated; I10 Essential (primary) hypertension; F20.9 Schizophrenia, unspecified; R53.1 Weakness; R94.31 Abnormal electrocardiogram [ECG] [EKG]; Z79.82 Long term (current) use of aspirin; F19.10 Other psychoactive substance abuse, uncomplicated; R07.9 Chest pain, unspecified; J32.2 Chronic ethmoidal sinusitis
CPT/HCPCS: 36415; 70450; 71045; 80048; 80053; 80307; 81003; 83880; 84484; 85025; 93005; 96360; 96361; 96365; 96366; 97161; J7030; Z7502; Z7514; 99284; G0378